=== PATIENT | male | born 1975 | race Two or more races ===

== ENCOUNTER 2018-11-28 06:25 | Emergency (ER) | payer OTHER ==
[~2018-11-28] VITALS: Ht 165.1 cm; Wt 81.0 kg
[2018-11-28 06:28] VITALS: BP 151/93
[2018-11-28] MEDS ORDERED: triamcinolone acetonide 40mg/ml inj IM ONE (07:00)
[2018-11-28] MEDS ORDERED: PRED20TA PO (07:05)
[2018-11-28] MEDS ORDERED: HYDR-3686 PO (07:05)
== END 2018-11-28 07:16 | disposition home or self-care (01) ==
LOC: ER 06:26
DX: L23.7 Allergic contact dermatitis due to plants, except food (principal); H11.31 Conjunctival hemorrhage, right eye
CPT/HCPCS: 96372; 99283; J3301

== ENCOUNTER 2019-02-04 13:29 | Emergency (ER) | payer OTHER ==
[~2019-02-04] VITALS: Ht 165.1 cm; Wt 85.0 kg
[2019-02-04 13:39] VITALS: BP 138/82
--- NOTE | 2019-02-04 14:40 | NUR ---
AWAITING FOR ED PROVIDER.
[2019-02-04] MEDS ORDERED: naproxen 500mg tablet PO ONE (15:15)
[2019-02-04] MEDS ORDERED: NAPR-56 PO (15:19)
--- NOTE | 2019-02-04 15:21 | NUR ---
DR. LLANES AT BEDSIDE.
== END 2019-02-04 15:41 | disposition home or self-care (01) ==
LOC: ER 13:29
DX: S46.011A Strain of muscle(s) and tendon(s) of the rotator cuff of right shoulder, initial encounter (principal); W18.09XA Striking against other object with subsequent fall, initial encounter; Y93.89 Activity, other specified; Y92.89 Other specified places as the place of occurrence of the external cause; Y99.9 Unspecified external cause status
CPT/HCPCS: 73030; 99283

== ENCOUNTER 2019-08-18 18:17 | Emergency (ER) | payer OTHER ==
[~2019-08-18] VITALS: Ht 165.1 cm; Wt 88.6 kg
[2019-08-18] MEDS ORDERED: polyvinyl alcohol ophthalmic drops 15ml bottle RIGHTEYE STA (18:49)
[2019-08-18] MEDS ORDERED: hydrocortisone 2.5% cream 28.4gm TP ONE (18:50)
[2019-08-18] MEDS ORDERED: HYDR28CR14 TOP (18:59)
[2019-08-18 19:17] VITALS: BP 139/85
== END 2019-08-18 19:20 | disposition home or self-care (01) ==
LOC: ER 18:18
DX: L23.7 Allergic contact dermatitis due to plants, except food (principal); M79.89 Other specified soft tissue disorders; Z79.899 Other long term (current) drug therapy
CPT/HCPCS: 99283